=== PATIENT | male | born 1995 | race Caucasian/White ===

== ENCOUNTER 2016-07-17 22:09 | Emergency (ER) | payer SELFPAY ==
[~2016-07-17] VITALS: Ht 185.4 cm; Wt 121.4 kg
[~2016-07-17 22:09] MED LIST: ADHD MED; AMOXICILLIN; ASTHMA INHALER; COLACE 100100 MG/CAP PO; FLOVENT 110MCG7.9 GM IH; LEVAQUIN 5500 MG/TA1 PO; LORTAB 5/500 501 TAB PO; MUCINEX 60600 MG/TA1 PO; MUCINEX 60600 MG/TAB PO; NO HOME MEDICATIONS; NORCO 325 MG-51 TAB PO; PEN-VEE K500 MG PO; PHENERGAN W/CO120 M1 PO; PREDNISONE20 MG PO; PROVENTIL0.09 MG/A1 IH; SLEEPING PILL; SUDAFED30 MG PO; TESSALON P100 MG/CAP PO; TUSS PO; UP TO DATE; VENTOLIN0.09 MG IH; ZITHROMAX 250M250 MG PO; ZITHROMAX Z PA250 MG PO; [UNRECOGNIZED DRUG - OTHER]; concerta
[2016-07-17 22:11] VITALS: TEMP 98.4
[2016-07-17] MEDS ORDERED: PREDNISONE20 MG PO (23:26)
[2016-07-17 23:50] VITALS: BP 157/82; PULSE 108
== END 2016-07-17 23:44 | disposition home or self-care (01) ==
LOC: COL.ER 22:09
DX: J20.9 Acute bronchitis, unspecified (principal)
CPT/HCPCS: J7512

== ENCOUNTER 2017-04-26 21:04 | Emergency (ER) | payer SELFPAY ==
[~2017-04-26] VITALS: Ht 185.4 cm; Wt 127.3 kg
[2017-04-26 21:06] VITALS: BP 140/91; TEMP 98.7
[2017-04-26] MEDS ORDERED: PREDNISONE20 MG PO (22:22)
[2017-04-26] MEDS ORDERED: PROAIR HFA0.09 MG/AC IH (22:23)
[2017-04-26 22:46] VITALS: PULSE 94
== END 2017-04-26 22:46 | disposition home or self-care (01) ==
LOC: COL.ER 21:04
DX: J45.901 Unspecified asthma with (acute) exacerbation (principal); F17.200 Nicotine dependence, unspecified, uncomplicated
CPT/HCPCS: J7512

== ENCOUNTER 2018-04-11 13:50 | Emergency (ER) | payer SELFPAY ==
[~2018-04-11] VITALS: Ht 185.4 cm; Wt 135.3 kg
[~2018-04-11 13:50] MED LIST changes: +PROAIR HFA0.09 MG/AC IH
[2018-04-11 14:00] VITALS: BP 155/75; TEMP 98.9
[2018-04-11 15:14] VITALS: PULSE 90
== END 2018-04-11 15:16 | disposition home or self-care (01) ==
LOC: COL.ER 13:50
DX: M79.662 Pain in left lower leg (principal); F17.210 Nicotine dependence, cigarettes, uncomplicated; F90.9 Attention-deficit hyperactivity disorder, unspecified type
CPT/HCPCS: L1846

== ENCOUNTER 2018-08-27 03:21 | Emergency (ER) | payer SELFPAY ==
[~2018-08-27] VITALS: Ht 185.4 cm; Wt 118.2 kg
[2018-08-27 03:24] VITALS: BP 173/111; TEMP 98.9
[2018-08-27] MEDS ORDERED: CRUTCHES MC (04:23)
[2018-08-27 04:49] VITALS: PULSE 65
== END 2018-08-27 04:49 | disposition home or self-care (01) ==
LOC: COL.ER 03:21
DX: S89.92XA Unspecified injury of left lower leg, initial encounter (principal); F17.210 Nicotine dependence, cigarettes, uncomplicated; W19.XXXA Unspecified fall, initial encounter; Y92.511 Restaurant or cafe as the place of occurrence of the external cause
CPT/HCPCS: L1846

== ENCOUNTER 2019-08-02 03:18 | Emergency (ER) | payer SELFPAY ==
[~2019-08-02] VITALS: Ht 185.4 cm; Wt 137.3 kg
[~2019-08-02 03:18] MED LIST changes: +CRUTCHES MC
[2019-08-02 03:24] VITALS: BP 181/100; TEMP 98.8
[2019-08-02] MEDS ORDERED: NORCO 325 MG-51 TAB PO (04:05)
[2019-08-02] MEDS ORDERED: CLEOCIN HCL300 MG PO (04:05)
[2019-08-02 04:22] VITALS: PULSE 95
== END 2019-08-02 04:22 | disposition home or self-care (01) ==
LOC: COL.ER 03:18
DX: K02.9 Dental caries, unspecified (principal)

== ENCOUNTER 2021-10-07 19:45 | Emergency (ER) | payer SELFPAY ==
[~2021-10-07] VITALS: Ht 185.4 cm; Wt 126.4 kg
[~2021-10-07 19:45] MED LIST changes: +CLEOCIN HCL300 MG PO
[2021-10-07 20:01] VITALS: TEMP 98.8
[2021-10-07 20:36] LABS: BASO # 0.1 K/mm3 (0.0-0.2); BASO % 0.5 % (0.0-2.0); EOS # 0.5 K/mm3 (0.0-0.7); EOS % 2.9 % (0.0-4.0); GRAN # 13.6 K/mm3 (1.4-6.5); GRAN % 73.3 % (42.2-75.2); HEMATOCRIT 45.5 % (42.0-52.0); HEMOGLOBIN 15.3 g/dl (13.5-18.0); LYMPH # 3.1 K/mm3 (1.2-3.4); LYMPH % 16.8 % (20.0-51.0); MEAN CELL VOLUME 78 fl (80.0-100.0); MEAN CORPUSCULAR HEMOGLOBIN 26 pg (27-31); MEAN CORPUSCULAR HGB CONC 34 g/dl (33.0-37.0); MEAN PLATELET VOLUME 9.4 fl (7.4-10.4); MONO # 1.1 K/mm3 (0.1-0.6); MONO % 5.9 % (1.7-9.3); PLATELET COUNT 339 K/mm3 (130-400); REDCELL DISTRIBUTION WIDTH-CV 13.3 % (11.5-14.5)
[2021-10-07 20:47] LABS: COLLECTION METHOD CLEAN CATCH
[2021-10-07 20:54] LABS: BILIRUBIN,TOTAL 0.6 mg/dL (0.2-1.2); CALCIUM 9.7 mg/dL (8.4-10.2); CREATININE, serum 0.88 mg/dL (0.72-1.25); POTASSIUM 4.4 mmol/L (3.5-4.5); TOTAL PROTEIN 8.5 gm/dL (6.2-8.1)
[2021-10-07 20:59] LABS: MUCOUS Present (NOT PRESENT); PH 6 (5-8); SQUAMOUS EPITHELIAL 0-2 /hpf (0-10); URINE APPEARANCE Hazy (CLEAR/HAZY); URINE BACTERIA None Seen /hpf (NONE SEEN); URINE BILIRUBIN Negative (NEGATIVE); URINE BLOOD Negative (NEGATIVE); URINE COLOR Yellow (YELLOW); URINE GLUCOSE Negative (NEGATIVE); URINE KETONE Negative (NEGATIVE); URINE LEUKOCYTE ESTERASE Negative (NEGATIVE); URINE NITRATE Negative (NEGATIVE); URINE PROTEIN(semi-quant) 1+ (NEGATIVE); URINE RBC 0-2 /hpf (0-2)
[2021-10-07] MEDS ORDERED: FLAGYL500 MG PO (21:29)
[2021-10-07] MEDS ORDERED: CIPRO 500MG TA500 MG PO (21:29)
[2021-10-07 21:37] VITALS: BP 137/87; PULSE 87
== END 2021-10-07 21:47 | disposition home or self-care (01) ==
LOC: COL.ER 19:45
PROVIDERS: Nurse Practitioner Primary Care
DX: K57.92 Diverticulitis of intestine, part unspecified, without perforation or abscess without bleeding (principal); F17.200 Nicotine dependence, unspecified, uncomplicated
CPT/HCPCS: J1885; J7030; Q9967

== ENCOUNTER 2023-08-18 16:52 | Emergency (ER) | payer SELFPAY ==
[~2023-08-18] VITALS: Ht 185.4 cm; Wt 140.9 kg
[~2023-08-18 16:52] MED LIST changes: +BD ALCOHOL1 SWA MC; +CIPRO 500MG TA500 MG PO; +FLAGYL500 MG PO; +GLUCOPHAGE500 MG/TAB PO; +GLUCOSE TEST ST1 DEV MC; +LANCETS MC
[2023-08-18 17:11] VITALS: TEMP 98.4
[2023-08-18 18:08] LABS: COLLECTION METHOD CLEAN CATCH
[2023-08-18 18:13] LABS: BASO # 0.1 K/mm3 (0.0-0.2); BASO % 0.3 % (0.0-2.0); EOS # 0.2 K/mm3 (0.0-0.7); EOS % 0.9 % (0.0-4.0); GRAN # 12.5 K/mm3 (1.4-6.5); GRAN % 78.4 % (42.2-75.2); HEMATOCRIT 39.5 % (42.0-52.0); HEMOGLOBIN 13.1 g/dl (13.5-18.0); LYMPH % 12.8 % (20.0-51.0); MEAN CELL VOLUME 78 fl (80.0-100.0); MEAN CORPUSCULAR HEMOGLOBIN 26 pg (27-31); MEAN CORPUSCULAR HGB CONC 33 g/dl (33.0-37.0); MEAN PLATELET VOLUME 8.9 fl (7.4-10.4); MONO # 1.1 K/mm3 (0.1-0.6); MONO % 7.2 % (1.7-9.3); PLATELET COUNT 276 K/mm3 (130-400); RED BLOOD COUNT 5.08 M/mm3 (4.20-5.60); REDCELL DISTRIBUTION WIDTH-CV 13.7 % (11.5-14.5)
[2023-08-18] MEDS ORDERED: Ketorolac 15 MG/ML VIAL IV ONE (18:15)
[2023-08-18 18:28] LABS: PH 5.5 (5.0-8.5); URINE APPEARANCE CLEAR (CLEAR/HAZY); URINE BLOOD NEGATIVE (NEGATIVE); URINE COLOR Dark Yellow (YELLOW); URINE GLUCOSE NEGATIVE (NEGATIVE); URINE KETONE TRACE (NEGATIVE); URINE NITRATE NEGATIVE (NEGATIVE); URINE PROTEIN(semi-quant) TRACE (NEGATIVE)
[2023-08-18 18:31] LABS: ALBUMIN 3.8 gm/dL (3.5-5.0); BILIRUBIN,TOTAL 0.8 mg/dL (0.2-1.2); C-REACTIVE PROTEIN 8.86 mg/dL (0.00-0.50); CALCIUM 9.7 mg/dL (8.4-10.2); CREATININE, serum 0.82 mg/dL (0.72-1.25); POTASSIUM 3.6 mmol/L (3.5-4.5); TOTAL PROTEIN 7.7 gm/dL (6.2-8.1)
[2023-08-18 18:36] LABS: TRICYCLIC ANTIDEPRESS URINE NEGATIVE (NEGATIVE)
[2023-08-18] MEDS ORDERED: NS 50 ML IV SCH (19:08)
[2023-08-18] MEDS ORDERED: Iohexol 300 - 100 ML VIAL IV ONE (19:08)
[2023-08-18] MEDS ORDERED: AMOXICILLIN 8751 TAB PO (20:08)
[2023-08-18 20:11] VITALS: BP 146/67; PULSE 82
[2023-08-18] MEDS ORDERED: Home HYDROcodone/Acetaminophen 5/325 MG #4 TABS/PACK PO ONE (20:15)
[2023-08-18] MEDS ORDERED: Amoxicillin/Clavulanate K+ 875/125 MG TAB PO ONE (20:15)
== END 2023-08-18 20:54 | disposition home or self-care (01) ==
LOC: COL.ER 16:52
PROVIDERS: Nurse Practitioner
DX: K57.32 Diverticulitis of large intestine without perforation or abscess without bleeding (principal); F17.210 Nicotine dependence, cigarettes, uncomplicated; Z88.6 Allergy status to analgesic agent
CPT/HCPCS: J1885; Q9967